=== PATIENT | female | born 1965 | race African-American/Black ===

== ENCOUNTER 2017-08-11 14:18 | Emergency (ER) | payer BC ==
[~2017-08-11] VITALS: Ht 172.7 cm; Wt 105.2 kg
[2017-08-11 15:20] LABS: HEMATOCRIT 36.7 % (34.2-44.1); HEMOGLOBIN 12.3 g/dL (12.0-16.0); MEAN CORPUSCULAR HEMOGLOBIN 30.4 pg (28-32); MEAN CORPUSCULAR HGB CONC 33.5 g/dL (31-35); MEAN CORPUSCULAR VOLUME 90.6 fL (81-99); PLATELET COUNT 213 x10e3/uL (140-360); RED BLOOD COUNT 4.05 x10e6/uL (3.6-5.1); RED CELL DISTRIBUTION WIDTH 12.3 % (11.7-14.4)
[2017-08-11 15:23] LABS: BILIRUBIN,URINE 1+ (NEGATIVE); CLARITY,URINE CLOUDY (CLEAR); COLOR,URINE YELLOW (YELLOW); KETONES,URINE NEGATIVE (NEGATIVE); LEUKOCYTE ESTERASE ,URINE 1+ (NEGATIVE); NITRITE,URINE NEGATIVE (NEGATIVE); PROTEIN,URINE DIPSTICK NEGATIVE (NEGATIVE); URINE UROBILINOGEN 0.2 mg/dL (0.2 - 1)
[2017-08-11] MEDS ORDERED: ASPIRIN 81 MG CHEW TAB PO ONE (15:30)
[2017-08-11 15:41] LABS: CREATINE KINASE MB 3.9 ng/mL (0-5.0)
[2017-08-11 15:43] LABS: BACTERIA,URINE MANY /HPF; EPITHELIAL CELLS,URINE MODERATE /LPF; WBC,URINE (MAN) 0-5 /HPF (0-5)
--- NOTE | 2017-08-11 15:52 | Diagnostic Imaging Report ---
PROCEDURE: A single AP view of the chest. COMPARISON: None. INDICATIONS: SHORTNESS OF BREATH, LEFT LEG PAIN/CRAMPING FINDINGS: Lines/tubes: None. Lungs: The lungs are well inflated. Linear density in the left lower lung likely represent subsegmental atelectasis. There is no evidence of pneumonia or pulmonary edema. Pleura: There is no pleural effusion or pneumothorax. Heart and mediastinum: The heart and the mediastinum are unremarkable. Bones: No acute bony abnormality. IMPRESSION: 1. No acute cardiopulmonary abnormalities. Nakul Shaffer M.D. Dictated by: Nakul Shaffer M.D. on 08/11/2017 at 15:53 Electronically approved by: Nakul Shaffer M.D. on 08/11/2017 at 15:53
[2017-08-11 16:18] LABS: ALANINE AMINOTRANSFERASE 26 IU/L (0-55); ALBUMIN 3.6 g/dL (3.5-5.0); ALBUMIN/GLOBULIN RATIO 0.9 (0.8-2.0); ALKALINE PHOSPHATASE 122 IU/L (40-150); BLOOD UREA NITROGEN 18 mg/dL (7-26); BUN/CREATININE RATIO 18 (6-25); CALCIUM 9.2 mg/dL (8.4-10.2); CARBON DIOXIDE 24 mmol/L (22-29); CHLORIDE 106 mmol/L (98-107); CREATININE, SERUM 0.99 mg/dL (0.57-1.11); EST GLOMERULAR FILTRATION RATE > 60 ML/MIN (60-); GLUCOSE 110 mg/dL (74-118); SODIUM 141 mmol/L (136-145)
[2017-08-11 16:59] LABS: EOSINOPHILS % (MANUAL) 1 % (0-7); LYMPHOCYTES % (MANUAL) 36 % (19-48); MONOCYTES % (MANUAL) 6 % (3.4-9.0); NEUTROPHILS % (MANUAL) 57 % (40-74)
[2017-08-11 17:00] LABS: HYPOCHROMASIA MODERATE; OVALOCYTES FEW; POLYCHROMASIA FEW; RBC MORPHOLOGY COMMENT ABNORMAL
[2017-08-11 17:01] LABS: PLATELET ESTIMATE ADEQUATE
[2017-08-11 17:17] VITALS: BP 171/98
== END 2017-08-11 17:30 | disposition home or self-care (01) ==
LOC: ER 14:18
DX: R06.02 Shortness of breath (principal); M79.662 Pain in left lower leg; I10 Essential (primary) hypertension; R00.2 Palpitations
CPT/HCPCS: 36415; 71045; 80053; 81001; 82550; 82553; 84484; 85007; 85027; 93005; 93970; 99284

== ENCOUNTER 2020-02-10 18:45 | Emergency (ER) | payer BC ==
[~2020-02-10] VITALS: Ht 172.7 cm; Wt 105.2 kg
[2020-02-10] MEDS ORDERED: SODIUM CHLORIDE 0.9% 1000ML 1,000 ML IV STA (18:52)
[2020-02-10] MEDS ORDERED: ASPIRIN 81 MG CHEW TAB PO ONE (19:00)
[2020-02-10 19:07] LABS: BASOPHILS % 0.3 % (0.0-1.0); EOSINOPHILS # (AUTO) 0.1 (0.0-0.4); EOSINOPHILS % 1.4 % (0.0-6.0); HEMATOCRIT 37.4 % (34.2-44.1); HEMOGLOBIN 12.2 g/dL (12.0-16.0); LYMPHOCYTES # (AUTO) 2.2 (1.0-3.2); LYMPHOCYTES % 31.5 % (18.0-39.1); MEAN CORPUSCULAR HEMOGLOBIN 29.5 pg (28-32); MEAN CORPUSCULAR HGB CONC 32.6 g/dL (31-35); MEAN CORPUSCULAR VOLUME 90.6 fL (81-99); MONOCYTES # (AUTO) 0.3 (0.2-0.8); MONOCYTES % 4.3 % (4.4-11.3); NEUTROPHILS # (AUTO) 4.3 (2.1-6.9); NEUTROPHILS % 62.2 % (38.7-80.0); PLATELET COUNT 243 x10e3/uL (140-360); RED BLOOD COUNT 4.13 x10e6/uL (3.6-5.1); RED CELL DISTRIBUTION WIDTH 12.4 % (11.7-14.4)
[2020-02-10 19:31] LABS: BILIRUBIN,URINE NEGATIVE (NEGATIVE); CLARITY,URINE CLOUDY (CLEAR); COLOR,URINE YELLOW (YELLOW); KETONES,URINE TRACE (NEGATIVE); LEUKOCYTE ESTERASE ,URINE NEGATIVE (NEGATIVE); NITRITE,URINE NEGATIVE (NEGATIVE); PROTEIN,URINE DIPSTICK NEGATIVE (NEGATIVE); URINE UROBILINOGEN 0.2 mg/dL (0.2 - 1)
[2020-02-10 19:35] LABS: CREATINE KINASE MB 4.7 ng/mL (0-5.0)
[2020-02-10 19:46] LABS: BACTERIA,URINE MODERATE /HPF; EPITHELIAL CELLS,URINE MODERATE /LPF
[2020-02-10 20:00] LABS: ALANINE AMINOTRANSFERASE 21 IU/L (0-55); ALBUMIN 3.7 g/dL (3.5-5.0); ALBUMIN/GLOBULIN RATIO 0.9 (0.8-2.0); ALKALINE PHOSPHATASE 132 IU/L (40-150); ANION GAP 13.6 mmol/L (8-16); BLOOD UREA NITROGEN 15 mg/dL (7-26); BUN/CREATININE RATIO 16 (6-25); CARBON DIOXIDE 23 mmol/L (22-29); CHLORIDE 107 mmol/L (98-107); CREATININE, SERUM 0.94 mg/dL (0.57-1.11); EST GLOMERULAR FILTRATION RATE > 60 ML/MIN (60-); GLUCOSE 140 mg/dL (74-118); POTASSIUM 3.6 mmol/L (3.5-5.1); SODIUM 140 mmol/L (136-145)
[2020-02-10 20:06] VITALS: BP 131/74
== END 2020-02-10 20:39 | disposition home or self-care (01) ==
LOC: ER 20:09
DX: G45.9 Transient cerebral ischemic attack, unspecified (principal); I49.3 Ventricular premature depolarization; N39.0 Urinary tract infection, site not specified; R94.31 Abnormal electrocardiogram [ECG] [EKG]; I10 Essential (primary) hypertension; F17.210 Nicotine dependence, cigarettes, uncomplicated
CPT/HCPCS: 36415; 70450; 71046; 80053; 81001; 82550; 82553; 83880; 84484; 85025; 93005; 99284; J7030

== ENCOUNTER 2021-05-04 16:06 | Emergency (ER) | payer BC ==
[~2021-05-04] VITALS: Ht 172.7 cm; Wt 105.2 kg
[2021-05-04] MEDS ORDERED: ONDANSETRON ODT4 MG PO (16:45)
== END 2021-05-04 17:00 | disposition home or self-care (01) ==
LOC: ER 16:18
DX: U07.1 COVID-19 (principal); R50.9 Fever, unspecified; R05.9 Cough, unspecified
CPT/HCPCS: 99283; U0002

== ENCOUNTER 2022-10-18 16:27 | Inpatient (IN) | payer BC ==
[~2022-10-18] VITALS: Ht 172.7 cm; Wt 105.2 kg
[~2022-10-18 16:27] MED LIST: ONDANSETRON ODT4 MG PO
[2022-10-18 16:57] LABS: BASOPHILS % 0.3 % (0.0-1.0); EOSINOPHILS # (AUTO) 0.1 (0.0-0.4); HEMATOCRIT 37.3 % (34.2-44.1); HEMOGLOBIN 12.3 g/dL (12.0-16.0); LYMPHOCYTES # (AUTO) 1.7 (1.0-3.2); LYMPHOCYTES % 28.2 % (18.0-39.1); MEAN CORPUSCULAR HEMOGLOBIN 28.8 pg (28-32); MEAN CORPUSCULAR VOLUME 87.4 fL (81-99); MONOCYTES # (AUTO) 0.3 (0.2-0.8); MONOCYTES % 4.4 % (4.4-11.3); NEUTROPHILS # (AUTO) 3.9 (2.1-6.9); NEUTROPHILS % 66.1 % (38.7-80.0); PLATELET COUNT 220 x10e3/uL (140-360); RED BLOOD COUNT 4.27 x10e6/uL (3.6-5.1); RED CELL DISTRIBUTION WIDTH 12.8 % (11.7-14.4)
[2022-10-18] MEDS ORDERED: SODIUM CHLORIDE FLUSH 10 ML SYR IV PRN (17:00)
[2022-10-18 17:18] LABS: ALBUMIN 3.8 g/dL (3.5-5.0); ANION GAP 14.9 mmol/L (8-16); CALCIUM 9.3 mg/dL (8.4-10.2); CREATININE, SERUM 0.93 mg/dL (0.57-1.11); POTASSIUM 3.9 mmol/L (3.5-5.1)
[2022-10-18] MEDS ORDERED: SODIUM CHLORIDE FLUSH 10 ML SYR INJ PRN (18:00)
[2022-10-18] MEDS ORDERED: ASPIRIN 81 MG CHEW TAB PO ONE (18:00)
[2022-10-18] MEDS ORDERED: ONDANSETRON HCL INJ 2MG/ML 2ML 2 MG/ML VIAL IV PRN (18:00)
[2022-10-18] MEDS: HYDRALAZINE HCL 20 MG/ML VIAL IV PRN (18:35)
[2022-10-18 20:30] VITALS: BP 146/103; PULSE 76; RESP 18; TEMP 97.7; O2SAT 100
[2022-10-18] MEDS ORDERED: BENICAR20 MG PO (22:56)
[2022-10-18] MEDS ORDERED: HYDROCHLOROTH12.5 MG PO (22:56)
[2022-10-18] MEDS ORDERED: HYDROCODON-ACE1 EAC9 PO (22:56)
[2022-10-19] VITALS (8 sets, daily range): BP systolic 136–165; BP diastolic 80–95; PULSE 68–102; RESP 17–23; TEMP 97.6–98.2; O2SAT 100
[2022-10-19] MEDS ORDERED: ACETAMINOPHEN 325 MG TAB PO PRN (04:30)
[2022-10-19 05:18] LABS: BASOPHILS % 0.2 % (0.0-1.0); EOSINOPHILS # (AUTO) 0.1 (0.0-0.4); EOSINOPHILS % 1.2 % (0.0-6.0); HEMATOCRIT 35.5 % (34.2-44.1); HEMOGLOBIN 11.6 g/dL (12.0-16.0); LYMPHOCYTES # (AUTO) 1.5 (1.0-3.2); LYMPHOCYTES % 33.6 % (18.0-39.1); MEAN CORPUSCULAR HEMOGLOBIN 29.1 pg (28-32); MEAN CORPUSCULAR HGB CONC 32.7 g/dL (31-35); MEAN CORPUSCULAR VOLUME 89.2 fL (81-99); MONOCYTES # (AUTO) 0.3 (0.2-0.8); MONOCYTES % 5.8 % (4.4-11.3); NEUTROPHILS # (AUTO) 2.6 (2.1-6.9); PLATELET COUNT 196 x10e3/uL (140-360); RED BLOOD COUNT 3.98 x10e6/uL (3.6-5.1); RED CELL DISTRIBUTION WIDTH 12.8 % (11.7-14.4)
[2022-10-19 05:45] LABS: ALBUMIN 3.5 g/dL (3.5-5.0); ANION GAP 12.9 mmol/L (8-16); CALCIUM 8.9 mg/dL (8.4-10.2); CREATININE, SERUM 0.83 mg/dL (0.57-1.11); POTASSIUM 3.9 mmol/L (3.5-5.1)
[2022-10-19] MEDS: ASPIRIN 325 MG TAB EC PO SCH (09:05)
[2022-10-19] MEDS: OLMESARTAN 20 MG TAB PO SCH (09:06)
[2022-10-19] MEDS: HYDROCHLOROTHIAZIDE 25 MG TAB PO SCH (09:06)
[2022-10-19] MEDS: PANTOPRAZOLE SOD 40 MG TABEC PO SCH (12:06)
[2022-10-19] MEDS: SODIUM CHLORIDE 0.9% 1000ML 1,000 ML IV SCH (12:57)
[2022-10-20] VITALS (8 sets, daily range): BP systolic 140–191; BP diastolic 76–92; PULSE 70–96; RESP 18–23; TEMP 97.5–98.7; O2SAT 98–100
[2022-10-20] MEDS: SODIUM CHLORIDE 0.9% 1000ML 1,000 ML IV SCH ×3 (00:34→14:50)
[2022-10-20] MEDS: HYDRALAZINE HCL 20 MG/ML VIAL IV PRN (06:50)
[2022-10-20] MEDS: PANTOPRAZOLE SOD 40 MG TABEC PO SCH (08:53)
[2022-10-20] MEDS: ASPIRIN 325 MG TAB EC PO SCH (09:36)
[2022-10-20] MEDS: OLMESARTAN 20 MG TAB PO SCH (09:40)
[2022-10-20] MEDS: HYDROCHLOROTHIAZIDE 25 MG TAB PO SCH (09:41)
[2022-10-20] MEDS ORDERED: AMLODIPINE BESYLATE 5 MG TAB PO SCH (10:30)
[2022-10-20] MEDS ORDERED: NIFEDIPINE CR 30 MG TAB PO ONE (14:00)
[2022-10-21] VITALS (9 sets, daily range): BP systolic 127–174; BP diastolic 73–97; PULSE 67–98; RESP 18–20; TEMP 97.7–98.4; O2SAT 99–100
[2022-10-21] MEDS: SODIUM CHLORIDE 0.9% 1000ML 1,000 ML IV SCH ×2 (05:30→18:37)
[2022-10-21] MEDS: HYDRALAZINE HCL 20 MG/ML VIAL IV PRN ×2 (05:36→20:10)
[2022-10-21] MEDS: PANTOPRAZOLE SOD 40 MG TABEC PO SCH (08:13)
[2022-10-21] MEDS ORDERED: NIFEDIPINE CR 30 MG TAB PO SCH ×2 (09:00→17:00)
[2022-10-21] MEDS: HYDROCHLOROTHIAZIDE 25 MG TAB PO SCH (09:39)
[2022-10-21] MEDS: ASPIRIN 325 MG TAB EC PO SCH (09:39)
[2022-10-21] MEDS: METOPROLOL SUCCINATE 50 MG TAB XL PO SCH (12:31)
[2022-10-21 13:07] LABS: MAGNESIUM 2.2 MG/DL (1.3-2.1); POTASSIUM 3.8 mmol/L (3.5-5.1)
[2022-10-21] MEDS: NIFEDIPINE CR 30 MG TAB PO SCH (20:09)
[2022-10-21] MEDS ORDERED: OLMESARTAN 20 MG TAB PO SCH (21:00)
[2022-10-22] VITALS: BP 148/74; PULSE 77; RESP 18; TEMP 97.5; O2SAT 100
[2022-10-22 04:00] VITALS: BP 151/87; PULSE 82; RESP 20; TEMP 97.9; O2SAT 100
[2022-10-22 08:40] VITALS: BP 181/80; PULSE 86; RESP 19; TEMP 98.6; O2SAT 100
[2022-10-22] MEDS: ASPIRIN 325 MG TAB EC PO SCH (08:55)
[2022-10-22] MEDS: HYDROCHLOROTHIAZIDE 25 MG TAB PO SCH (08:55)
[2022-10-22] MEDS: NIFEDIPINE CR 30 MG TAB PO SCH (08:55)
[2022-10-22] MEDS: PANTOPRAZOLE SOD 40 MG TABEC PO SCH (08:55)
[2022-10-22] MEDS: METOPROLOL SUCCINATE 50 MG TAB XL PO SCH (08:56)
[2022-10-22 12:26] VITALS: BP 141/77; PULSE 75; RESP 20; TEMP 97.7; O2SAT 100
[2022-10-23] MEDS ORDERED: TRIAMTERENE/HCTZ 37.5-25 MG TAB PO SCH (09:00)
== END 2022-10-22 13:47 | disposition home or self-care (01) | DRG 291 ==
LOC: ER 16:32 → ERHOLD 17:56 → MED/SURG3 20:30 → OBSVTOIN 10-20 09:16
PROVIDERS: ADMIT Internal Medicine; ATTEND Internal Medicine
DX: I11.0 Hypertensive heart disease with heart failure (principal); I50.41 Acute combined systolic (congestive) and diastolic (congestive) heart failure; M62.82 Rhabdomyolysis; I16.0 Hypertensive urgency; R00.0 Tachycardia, unspecified; I49.1 Atrial premature depolarization; E66.9 Obesity, unspecified; D64.9 Anemia, unspecified; G89.29 Other chronic pain; F17.290 Nicotine dependence, other tobacco product, uncomplicated; R73.9 Hyperglycemia, unspecified; Z68.35 Body mass index [BMI] 35.0-35.9, adult
CPT/HCPCS: 0223U; 36415; 70551; 71045; 80053; 82550; 83735; 83880; 84132; 84484; 85025; 93005; 93306; 94760; 96360; 99284; G0378; J7030